=== PATIENT | male | born 1955 | race Caucasian/White ===

== ENCOUNTER → 2017-12-29 | Outpatient (CLI) | payer BC ==
[~2017-12-29] MED LIST: ALBU90OI INH; AZIT250 PO; MULVITMIND; PRED10 PO; TRIA80TC TOP
== END | disposition home or self-care (01) ==
LOC: LAB SHORT 08:31 → PLD 08:31
DX: D22.61 Melanocytic nevi of right upper limb, including shoulder (principal)
CPT/HCPCS: 88305

== ENCOUNTER → 2021-07-07 | Outpatient (CLI) | payer BC | END | disposition home or self-care (01) | LOC: LAB SHORT 12:06 → LAB 12:06 | DX: L57.0 Actinic keratosis (principal) | CPT/HCPCS: 88305 ==